=== PATIENT | male | born 1995 | race American Indian/Alaskan Native ===

== ENCOUNTER 2017-11-01 21:13 | Emergency (ER) | payer SELFPAY ==
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
[2017-11-02] MEDS ORDERED: TORADOL IM ONE (05:05)
[2017-11-02] MEDS ORDERED: ZOFRAN IM ONE (05:05)
[2017-11-02] MEDS ORDERED: ZOFRAN ODT ONE (05:19)
[2017-11-02] MEDS ORDERED: ZOFRAN ODT PO ONE (05:36)
[2017-11-02 05:42] VITALS: BP 112/73
== END 2017-11-02 06:09 | disposition home or self-care (01) ==
LOC: ED 21:13
DX: S00.11XA Contusion of right eyelid and periocular area, initial encounter (principal); G43.001 Migraine without aura, not intractable, with status migrainosus; F17.200 Nicotine dependence, unspecified, uncomplicated; Y08.89XA Assault by other specified means, initial encounter; Y93.89 Activity, other specified; Y99.0 Civilian activity done for income or pay; Y92.69 Other specified industrial and construction area as the place of occurrence of the external cause
CPT/HCPCS: 70450; 96372; 99283; J1885; Q0162